=== PATIENT | female | born 1985 | race Two or more races ===

== ENCOUNTER 2018-09-01 02:35 | Emergency (ER) | payer SELFPAY ==
[~2018-09-01] VITALS: Ht 157.5 cm; Wt 59.0 kg
[~2018-09-01 02:35] MED LIST: NKM
[2018-09-01 02:45] VITALS: BP 80/62
--- NOTE | 2018-09-01 03:07 | Emergency Room Report ---
History of Present Illness General Chief Complaint: Alcohol Intoxication Source: Family Member Present Illness HPI 34HF with family. Pt. was at a friend's home and drinking. Possibly substance abuse also; unknown. Sister was "tracking" patient on her phone and called 911. Met at friend's house and transported here. Police also at scene and they interviewed friend who was cooperative and said patient was drinking. No trauma. No complaints prior to sister arriving on scene. Pt. is unable to give me history. Acc to sister pt. has had many episodes of drinking to excess. Unknown if other substances. History limited due to clinical condition. Allergies: Coded Allergies: No Known Allergies (Unverified , 09/01/18) Patient History Last Menstrual Period: last month Now: No Nursing Documentation-PM Past Medical History: No History, Except For Review of Systems All Other Systems: limited Physical Exam Vital Signs Date Time Temp Pulse Resp B/P (MAP) Pulse Ox O2 Delivery O2 Flow Rate FiO2 09/01/18 02:30 97.3 92 16 102/78 96 Room Air General Appearance: well appearing, other - appears intoxicated, not talking to me Head: normocephalic, atraumatic Eyes: bilateral eye normal inspection - dilated ~6 mm reactive ENT: uvula midline, moist mucus membranes Neck: full range of motion, supple Respiratory: no respiratory distress Cardiovascular #1: regular rate, rhythm, no edema Gastrointestinal: non tender Genitourinary: other - visual inspection no trauma, no irritation, no erythema Musculoskeletal: no calf tenderness, other - no track dye Neurologic: other - COOK spontaneously, tossing in bed, not talking, appears very intoxicated Psychiatric: other - cannot assess Skin: no rash Medical Decision Making Diagnostic Impression: Primary Impression: Acute alcoholic intoxication ER Course 345 am: etoh >400 IV fluids NS two liters anticipate d/c after 9-10 am. will make next MD aware. Rhythm Strip Diag. Results Rhythm Strip Time: 03:07 EP Interpretation: yes Rate: 99 Rhythm: NSR Last Vital Signs Date Time Temp Pulse Resp B/P (MAP) Pulse Ox O2 Delivery O2 Flow Rate FiO2 09/01/18 02:30 97.3 92 16 102/78 96 Room Air Status: improved Disposition: HOME, SELF-CARE Condition: Improved Patient Instructions: Alcohol Intoxication, [id number] John Moreno M.D. Sep 01, 2018 03:07
[2018-09-01 03:28] LABS: EOSINOPHILS % (AUTO) 1.5 % (0.0-3.0); HEMATOCRIT 35.2 % (37.0-47.0); HEMOGLOBIN 11.1 G/DL (12.0-16.0); LYMPHOCYTES % (AUTO) 37.8 % (20.0-45.0); MEAN CORPUSCULAR VOLUME 83 FL (80-99); MONOCYTES % (AUTO) 9.7 % (1.0-10.0); NEUTROPHILS % (AUTO) 48.9 % (45.0-75.0); PLATELET COUNT 513 K/UL (150-450); RED BLOOD COUNT 4.23 M/UL (4.20-5.40); RED CELL DISTRIBUTION WIDTH 17.2 % (11.6-14.8)
[2018-09-01 03:33] LABS: ANION GAP 12 mmol/L (5-15); BLOOD UREA NITROGEN 14 mg/dL (7-18); CALCIUM 8.4 MG/DL (8.5-10.1); CARBON DIOXIDE 24 MMOL/L (21-32); CHLORIDE 110 MMOL/L (98-107); CREATININE 0.7 MG/DL (0.55-1.30); POTASSIUM 3.8 MMOL/L (3.5-5.1); SODIUM 146 MMOL/L (136-145)
[2018-09-01 03:39] LABS: ALANINE AMINOTRANSFERASE 27 U/L (12-78); ALKALINE PHOSPHATASE 88 U/L (46-116); ASPARTATE AMINO TRANSFERASE 21 U/L (15-37); BILIRUBIN,TOTAL < 0.1 MG/DL (0.2-1.0)
[2018-09-01 04:43] VITALS: BP 86/45
[2018-09-01 06:13] VITALS: BP 91/60
[2018-09-01 07:01] VITALS: BP 88/54
[2018-09-01 07:30] VITALS: BP 95/70
[2018-09-01 08:05] VITALS: BP 95/70
== END 2018-09-01 08:05 | disposition home or self-care (01) ==
LOC: EDBD 02:35 → EMR 03:25
DX: F10.129 Alcohol abuse with intoxication, unspecified (principal)
CPT/HCPCS: 36415; 80053; 80307; 84703; 85025; 96360; 96361; 99284; G0480; 80329